=== PATIENT | male | born 1995 | race Caucasian/White ===

== ENCOUNTER 2021-08-08 19:21 | Emergency (ER) | payer OTHER, SELFPAY ==
--- NOTE | ~2021-08-08 | XR_ITS ---
EXAMINATION: XR wrist RT min 3V EXAM DATE: 08/08/2021 20:26 INDICATION: Pain post injury, ulnar pain and bruising. Initial encounter. TECHNIQUE: Right wrist frontal, frontal with ulnar deviation, oblique and lateral projections obtain ed and reviewed. There is no prior study for comparison. FINDINGS: Right wrist scapholunate joint space is maintained. With There are no acute fractures or d islocations identified. There is no subcutaneous gas. The soft tissue is unremarkable. There are no radiopaque foreign bodies. IMPRESSION: 1. XR wrist RT min 3V exam without acute osseous findings. Reviewed, dictated and finalized at location A. ATIONS SECTION MANAGER
[2021-08-08 19:32] VITALS: BP 140/85; PULSE 79; RESP 18; TEMP 36.7; O2SAT 99
--- NOTE | 2021-08-08 20:50 | ED.UPPEXIN ---
HPI - Extremity Injury (Upper) General Chief Complaint: Extremity Injury, Upper Stated Complaint: right wrist injury Time Seen by Provider: 08/08/21 20:22 Source: patient Mode of arrival: ambulatory Limitations: no limitations History of Present Illness HPI narrative: 26-year-old with no major medical problems here with complaints of right wrist injury. Patient states that he fell in the shower this morning started having pain and swelling this evening. Patient denies any other injuries. MD complaint: injury to: wrist (wrist) Onset (ago): day(s) (1) Place: home Severity: moderate Relieving factors: none Exacerbating factors: movement of extremity Context: fall Associated symptoms: denies other symptoms Related Data Allergies Allergy/AdvReac Type Severity Reaction Status Date / Time No Known Allergies Allergy Unverified 03/24/15 13:22 Review of Systems Review of Systems: All systems reviewed & are unremarkable except as noted in HPI and below Constitutional: Constitutional: Reports no additional constitutional complaints Eyes: Eyes: Reports no additional eye complaints ENT: Reports system reviewed and no additional complaints, except as documented Cardiovascular: Cardiovascular: Reports no additional cardiovascular complaints Respiratory: Respiratory: Reports no additional respiratory complaints Gastrointestinal: Gastrointestinal: Reports no additional gastrointestinal complaints Musculoskeletal: Musculoskeletal: Reports as per HPI Integumentary/Breasts: Skin/Breast: Reports system reviewed and no additional complaints, except as docu Neurologic: Reports system reviewed and no additional complaints, except as documented Exam Narrative: GENERAL: Well-appearing, well-nourished, and in no acute distress. HEAD: Normocephalic, atraumatic. EYES: PERRLA and EOMI. ENT: Nares clear, no rhinorrhea or epistaxis. Mucous membranes moist. NECK: Supple. CHEST: Clear to auscultation. No respiratory distress. HEART: Regular rate and rhythm. No murmur heard. Normal peripheral pulses EXTREMITIES: Normal range of motion. Mild STS of the right wrist. SKIN: Warm, dry, no rash. NEURO: No focal deficits. Alert and oriented x3. PSYCH: Normal mood and affect. Course Course Emergency Course: Inform patient about his x-ray findings. Advised Hugo wrap take ibuprofen for pain as prescribed. Vital Signs Vital signs: Vital Signs Temperature 36.7 C 08/08/21 19:32 Pulse Rate 79 08/08/21 19:32 Respiratory Rate 18 08/08/21 19:32 Blood Pressure 140/85 08/08/21 19:32 Pulse Oximetry 99 08/08/21 19:32 Temperature 36.7 C 08/08/21 19:32 Pulse Rate 79 08/08/21 19:32 Respiratory Rate 18 08/08/21 19:32 Blood Pressure 140/85 08/08/21 19:32 Pulse Oximetry 99 08/08/21 19:32 MDM - Extremity Injury (Upper) Imaging Data My impression: No Fracture Radiologist's impression: ITS Impressions Wrist X-Ray 08/08/21 20:37 IMPRESSION: 1. XR wrist RT min 3V exam without acute osseous findings. Discharge Plan Discharge Clinical Impression: Right wrist sprain Qualifiers: Encounter type: initial encounter Qualified Code(s): S63.501A - Unspecified sprain of right wrist, initial encounter Patient Disposition: Home, Self-Care Condition: Stable Instructions: Antibiotic Form, Wrist Sprain (ED) Additional Instructions: Use HUGO wrap , ice pain medication as prescribed. Prescriptions: New ibuprofen 600 mg tablet 600 mg PO TID PRN (Reason: pain) Qty: 20 RF: 0 Follow-up/Referrals: PHYSICIAN,CHUCKING MACHINE SET UP OPERATOR TOOL [Primary Care Provider] - Hector Roper MD [Physician] -
== END 2021-08-08 21:05 | disposition home or self-care (01) ==
LOC: ANHED 21:23
PROVIDERS: Emergency Provider Family Medicine
DX: S63.501A Unspecified sprain of right wrist, initial encounter (principal); W18.2XXA Fall in (into) shower or empty bathtub, initial encounter
CPT/HCPCS: 73110; 99283